=== PATIENT | male | born 1995 | race Caucasian/White ===

== ENCOUNTER 2024-09-10 08:22 | Emergency (ER) | payer BC, SELFPAY ==
[2024-09-10] MEDS ORDERED: Boostrix 0.5 ML (Tdap) VIAL (>/=7 yrs of age) ONE (08:45)
[2024-09-10] MEDS ORDERED: Lidocaine 1% PF 5 ML VIAL ONE (08:45)
[2024-09-10] MEDS ORDERED: Bacitracin 1 PK ONE (09:47)
== END 2024-09-10 09:50 | disposition home or self-care (01) ==
LOC: ERS 08:22
DX: S61.412A Laceration without foreign body of left hand, initial encounter (principal); F17.210 Nicotine dependence, cigarettes, uncomplicated; W26.0XXA Contact with knife, initial encounter; Z23 Encounter for immunization
CPT/HCPCS: 12001; 90471; 90715